=== PATIENT | male | born 1950 | race Caucasian/White ===

== ENCOUNTER 2017-03-30 10:41 | Outpatient (CLI) | payer MEDICARE ==
[~2017-03-30] VITALS: Ht 182.9 cm; Wt 70.5 kg
[2017-03-30] VITALS (12 sets, daily range): BP systolic 99–152; BP diastolic 68–99; PULSE 40–78; TEMP 97.9
[2017-03-30 11:20] LABS: HEMATOCRIT 40.6 % (42.0-52.0); HEMOGLOBIN 13.9 g/dl (13.5-18.0); MEAN CELL VOLUME 98 fl (80.0-100.0); MEAN CORPUSCULAR HEMOGLOBIN 34 pg (27.0-31.0); MEAN CORPUSCULAR HGB CONC 34 g/dl (33.0-37.0); MEAN PLATELET VOLUME 10.2 fl (7.4-10.4); PLATELET COUNT 164 K/mm3 (130-400); RED BLOOD COUNT 4.14 M/mm3 (4.20-5.60); REDCELL DISTRIBUTION WIDTH-CV 13.4 % (11.5-14.5); WHITE BLOOD COUNT 6.2 K/mm3 (4.8-10.8)
[2017-03-30 11:29] LABS: CREATININE, serum 1.08 mg/dL (0.66-1.25); POTASSIUM 4.3 mmol/L (3.4-5.0)
[2017-03-30 11:31] LABS: INR 1.2 (0.8-3.0); PROTHROMBIN TIME 13.6 SECONDS (9.7-12.8)
[2017-03-30] MEDS ORDERED: TENORMIN 2525 MG/TAB PO (12:50)
== END 2017-03-30 16:30 | disposition home or self-care (01) ==
LOC: EUO 10:41
PROVIDERS: Internal Medicine Interventional Cardiology
DX: I48.92 Unspecified atrial flutter (principal); I08.1 Rheumatic disorders of both mitral and tricuspid valves; I50.22 Chronic systolic (congestive) heart failure
CPT/HCPCS: J2250; J3010; J7030

== ENCOUNTER 2017-05-03 12:30 | Inpatient (IN) | payer MEDICARE ==
[~2017-05-03] VITALS: Ht 182.9 cm; Wt 70.6 kg
[2017-05-03] VITALS (471 sets, daily range): BP systolic 81–143; BP diastolic 57–102; PULSE 33–89; TEMP 94–98.6; O2SAT 58–100
[~2017-05-03 12:30] MED LIST: TENORMIN 2525 MG/TAB PO
[2017-05-03] MEDS ORDERED: GINGER500 MG PO (14:09)
[2017-05-03] MEDS ORDERED: ELIQUIS 2.5 PO (14:09)
[2017-05-03] MEDS ORDERED: TURMERIC500 MG PO (14:10)
[2017-05-03] MEDS ORDERED: MAGNESIUM ELEME30 MG PO (14:12)
[2017-05-03] MEDS ORDERED: IODINE (14:14)
[2017-05-04] VITALS (700 sets, daily range): BP systolic 101–122; BP diastolic 67–80; PULSE 91–93; TEMP 98.2–98.9; O2SAT 72–100
[2017-05-04] MEDS ORDERED: ELIQUIS 2.5 PO (11:43)
[2017-05-04] MEDS ORDERED: TYLENOL 325MG325 MG PO (11:44)
[2017-05-04] MEDS ORDERED: CEPHALEXIN500 M1 PO (11:45)
== END 2017-05-04 12:45 | disposition home or self-care (01) | DRG 243 ==
LOC: ICU 14:08
PROC: 0JH606Z Insertion of Pacemaker, Dual Chamber into Chest Subcutaneous Tissue and Fascia, Open Approach (ICD-10-PCS; principal; 2017-05-03)
PROC: 02HK3JZ Insertion of Pacemaker Lead into Right Ventricle, Percutaneous Approach (ICD-10-PCS; 2017-05-03)
PROC: 02H63JZ Insertion of Pacemaker Lead into Right Atrium, Percutaneous Approach (ICD-10-PCS; 2017-05-03)
DX: I49.5 Sick sinus syndrome (principal); I44.2 Atrioventricular block, complete; I50.22 Chronic systolic (congestive) heart failure; I42.0 Dilated cardiomyopathy; I11.0 Hypertensive heart disease with heart failure; I48.91 Unspecified atrial fibrillation; I08.1 Rheumatic disorders of both mitral and tricuspid valves
CPT/HCPCS: C1785; C1894; C1898; J0461; J0690; J1200; J1265; J1630; J1940; J3010

== ENCOUNTER → 2017-10-04 | Outpatient (CLI) | payer MEDICARE ==
[~2017-10-04] MED LIST changes: +CEPHALEXIN500 M1 PO; +ELIQUIS 2.5 PO; +GINGER500 MG PO; +IODINE; +K-DUR20 MEQ PO; +LASIX 40MG TABL40 MG PO; +MAGNESIUM ELEME30 MG PO; +TURMERIC500 MG PO; +TYLENOL 325MG325 MG PO
[2017-10-04 11:17] LABS: ALBUMIN 4.8 gm/dL (3.5-5.0); BILIRUBIN,TOTAL 1.4 mg/dL (0.0-1.0); CALCIUM 9.4 mg/dL (8.4-10.2); CREATININE, serum 1.31 mg/dL (0.66-1.25); POTASSIUM 4.7 mmol/L (3.4-5.0)
== END ==
LOC: COL.LAB 09:55
PROVIDERS: Nurse Practitioner Family
DX: I48.91 Unspecified atrial fibrillation (principal)

== ENCOUNTER → 2019-12-09 | Outpatient (CLI) | payer MEDICARE, OTHER | LOC: COL.RAD 09:02 | DX: C61 Malignant neoplasm of prostate (principal) | CPT/HCPCS: A9503 ==

== ENCOUNTER 2020-08-06 16:00 | Inpatient (IN) | payer MEDICARE, OTHER ==
[~2020-08-06] VITALS: Ht 182.9 cm; Wt 79.1 kg
[~2020-08-06 16:00] MED LIST changes: -CORDARONE200 MG/TAB PO; -COUMADIN 1MG1 MG/TAB PO; -K-DUR 10 MEQ T10 MEQ PO; -MELATIN 3 MG-11 TAB PO; -SYNTHROID0.05 MG/TA PO; -ULTRAM 50MG TAB50 MG PO
[2020-08-06] MEDS ORDERED: SYNTHROID0.05 MG/TA PO (16:58)
[2020-08-06] MEDS ORDERED: CORDARONE200 MG/TAB PO (17:01)
[2020-08-06] MEDS ORDERED: K-DUR 10 MEQ T10 MEQ PO (17:02)
[2020-08-06 17:03] VITALS: BP 126/60; PULSE 89; TEMP 97.6
[2020-08-06] MEDS ORDERED: ULTRAM 50MG TAB50 MG PO (17:04)
[2020-08-06] MEDS ORDERED: COUMADIN 1MG1 MG/TAB PO (17:05)
--- NOTE | 2020-08-06 17:18 | NUR ---
arrived on unit to room 351 per WC from admissionsat 1650, physical assessment completed, he is short of breath and breathing is labored, RXM completed, will assist him with changing into a gown, Dr Byrnes notified of patient's admission
--- NOTE | 2020-08-06 17:50 | NUR ---
sitting up on side of bed as he says it is easier to breathing sitting up, reminded him if he can it is good to sit back in bed with feet elevated to help decrease the swelling, verbalizes understanding, admission assessment completed, see interventions for further info, has brusing to low back on both sides that comes around to front, he states he has had this since having mitral valve replaced on 07/24, has healing chest incision that is without any redness or swelling, denies pain to incision, telemetry on and is confirmed with technician's helper, on admission he appeared somewhawt anxious since he was having trouble breathing, during assessment he appeared less anxious and would smile and joke with nurse, supper delivered and he will try to have something for supper, denies other needs
[2020-08-06] MEDS ORDERED: MELATIN 3 MG-11 TAB PO (18:12)
--- NOTE | 2020-08-06 18:21 | NUR ---
states ate about 2/3 of supper and tolerated well, is resting with head of bed elevated and feet up
[2020-08-06 18:33] LABS: CREATININE, serum 1.25 (0.66-1.25); POTASSIUM 4.8 mmol/L (3.4-5.0)
--- NOTE | 2020-08-06 18:51 | NUR ---
bedside shift report given to GILBERTO Dixon
[2020-08-06 19:09] LABS: TROPONIN-I 0.049 ng/mL (0.000-0.035)
--- NOTE | 2020-08-06 19:20 | NUR ---
Pt was setting on 90 degree bed when his nurse went for a bedside handover. Pt stated that he is tired and anxious. No further needs at this time.
[2020-08-06 19:35] VITALS: BP 114/97; PULSE 89; TEMP 98
[2020-08-06 19:57] LABS: INR 2.2 (0.8-3.0); PROTHROMBIN TIME 24.3 SECONDS (9.7-12.8)
--- NOTE | 2020-08-06 23:13 | NUR ---
Pt assessment completed and charted, alert, oriented, roomair. Meds provided as per NOV, tolerated well. Pt has abdominal distention and bruise on rt and lf upper abdominal quadrant. Lasix drip is running without complications, urinal on bedside. Pt is settled on his bed, call light is on reach. No further needs at this time.
[2020-08-06 23:22] VITALS: BP 112/51; PULSE 91; TEMP 97.5
--- NOTE | 2020-08-07 01:43 | NUR ---
CALLED RN ABOUT ABG ORDER THAT WAS INCORRECTLY ORDERED. SPOKE WITH RN STATING ABG ORDER WAS PUT IN WRONG AND NEED TO KNOW IF ORDER WAS PUT IN BY MISTAKE OR IF ORDER WAS MEANT TO BE PUT IN JUST PUT IN INCORRECTLY. RN STATED THAT SHE WOULD FIND OUT AND GIVE ME A CALL BACK. THIS RT NEVER GOT A CALL BACK AND WENT UP STAIRS TO TALK WITH RN. RN NEVER HAD AN ANSWER FOR THIS RT ABOUT THE ABG ORDER THEREFORE ABG WAS NEVER DONE. PT IS ON ROOM AIR LORENZA WELL WITH NO DISTRESS NOTED AT THIS TIME 99% FOR HIS SATURATIONS WILL CONTINUE TO MONITOR AND ASSESS PT.
[2020-08-07 03:01] VITALS: BP 123/77; PULSE 90; TEMP 97.3
--- NOTE | 2020-08-07 06:43 | NUR ---
Pt slept on and off through out the night. Pt was stated that he is tired getting up to urinate over night. Lasix drip is running without complications. No further needs at this time.
[2020-08-07 07:24] VITALS: BP 121/72; PULSE 91; TEMP 98.2
--- NOTE | 2020-08-07 09:13 | NUR ---
Pt awake and alert upon entry, sitting on side of bed, no C/O pain at this time. Shift assessments complete, left Pt call light in reach.
[2020-08-07 09:26] LABS: ARTERIAL BLD GAS O2 SATURATION 96.6 % (92-100); ARTERIAL BLD GAS TCO2 CT 23.2; ARTERIAL BLOOD GAS BASE EXCESS 0.7 (-2-2); ARTERIAL BLOOD GAS HCO3 22.3 meq/L (22-26); ARTERIAL BLOOD GAS PCO2 27.4 mmHg (35-45); ARTERIAL BLOOD GAS PO2 82.9 mmHg (80-100); ARTERIAL BLOOD GAS pH 7.53 (7.35-7.45)
[2020-08-07 09:26] LABS: BASO % 0.3 % (0.0-2.0); EOS % 0.4 % (0-4.0); GRAN # 7.3 (1.4-6.5); GRAN % 81.5 % (42.2-75.2); HEMOGLOBIN 10.9 g/dl (13.5-18.0); LYMPH # 0.5 (1.2-3.4); LYMPH % 5.5 % (20.0-51.0); MEAN CELL VOLUME 95 fl (80.0-100.0); MEAN CORPUSCULAR HEMOGLOBIN 31 pg (27.0-31.0); MEAN CORPUSCULAR HGB CONC 33 g/dl (33.0-37.0); MONO # 1.1 (0.1-0.6); PLATELET COUNT 412 K/mm3 (130-400); RED BLOOD COUNT 3.51 M/mm3 (4.20-5.60); REDCELL DISTRIBUTION WIDTH-CV 15.3 % (11.5-14.5)
[2020-08-07 09:33] LABS: HEMATOCRIT 33.2 % (42.0-52.0)
[2020-08-07 09:45] LABS: INR 2.4 (0.8-3.0); PROTHROMBIN TIME 27.6 SECONDS (9.7-12.8)
[2020-08-07 09:49] LABS: ALBUMIN 4.4 gm/dL (3.5-5.0); BILIRUBIN,TOTAL 2.8 mg/dL (0.0-1.0); CALCIUM 8.9 mg/dL (8.4-10.2); CREATININE, serum 1.43 (0.66-1.25); POTASSIUM 3.8 mmol/L (3.4-5.0); TOTAL PROTEIN 7.8 gm/dL (6.4-8.2)
--- NOTE | 2020-08-07 09:51 | NUR ---
Initial visit; Patient thanked Tank Truck Operator for offering prayer and God's blessings. Tank Truck Operator will follow up while patient is here.
[2020-08-07 10:19] LABS: TROPONIN-I 0.044 ng/mL (0.000-0.035)
[2020-08-07 11:20] VITALS: BP 127/97; PULSE 89; TEMP 98.4
--- NOTE | 2020-08-07 14:11 | NUR ---
DAHIANA met with the patient and his , Marita (ph#[phone]), to discuss discharge plan. The patient lives in [place] with his . He reports independence with ADLs and does not have any DME. The patient's primary care provider is REMY Milner and [facility] and [facility] in [place]. He reports no difficulties obtaining his meds. The patient does not have a DPOA-HC in EMR, but he states that he does have one completed and that it designates his . The patient plans to return home with his upon discharge. No additional needs at this time.
[2020-08-07 16:58] VITALS: BP 99/46; PULSE 88; TEMP 98.5
[2020-08-07 17:21] VITALS: BP 108/70
--- NOTE | 2020-08-07 18:58 | NUR ---
Pt resting in the room today, no C/O pain today. has had good output from the wilcox. VS have remained stable.
--- NOTE | 2020-08-07 19:20 | NUR ---
Pt was settling on his bed when this nurse went for a bedside handover. No further needs at this time.
[2020-08-07 20:29] VITALS: BP 119/75; PULSE 89; TEMP 97.9
[2020-08-08 00:03] VITALS: BP 104/65; PULSE 92; TEMP 98.1
--- NOTE | 2020-08-08 02:25 | NUR ---
Pt assessment completed and charted, alert, oriented, roomair. Meds provided as per MAR, tolerated well. Called Dr. Saha on pt's request to get additional sleep meds. Got phone order of aleks luis. Pt is settled on his bed, call light is on reach. No further needs at this time.
[2020-08-08 03:42] VITALS: BP 105/52; PULSE 89; TEMP 98.3
--- NOTE | 2020-08-08 06:14 | NUR ---
[facility] DEPART[facility] HEAD went to take scheduled vitals at around 0400 and pt was upset about that. Pt slept untill 0400. Convinced the pt in the morning and morning meds provided as per NOV. No further needs at this time.
[2020-08-08 08:23] VITALS: BP 92/56; PULSE 120; TEMP 97.7
--- NOTE | 2020-08-08 11:51 | NUR ---
PATIENT WAS VERY UPSET FROM THE CLUTCH ASSEMBLER ABOUT NOT GETTING ANY SLEEP. PATIENT IS TIRED OF BEING IN THE HOSPITAL AND NOT GETTING ANY SLEEP. THE RISKS AND BENEFITS WERE EDUCATED TO THE PATIENT ON STAYING IN THE HOSPITAL AND GETTING CARE VS. LEAVING AND NOT RECEIVING CARE. PATIENT SIGNED AMA PAPERWORK AT 11:17AM. IV WAS TAKEN OUT AND MARTINEZ WAS ALSO TAKEN OUT. PATIENT GOT DRESSED AND WAS WHEELED DOWN TO THE EMERGENCY ENTRANCE WHERE HE GOT IN HIS 'S CAR.
== END 2020-08-08 11:54 | disposition left against medical advice (07) | DRG 315 ==
LOC: SDCO 16:00 → MEDICAL 16:43
PROVIDERS: Nurse Practitioner; ADMIT Internal Medicine Interventional Cardiology
DX: I97.89 Other postprocedural complications and disorders of the circulatory system, not elsewhere classified (principal); J90 Pleural effusion, not elsewhere classified; J98.11 Atelectasis; R18.8 Other ascites; I48.91 Unspecified atrial fibrillation; Z79.01 Long term (current) use of anticoagulants; Z95.0 Presence of cardiac pacemaker; Y83.8 Other surgical procedures as the cause of abnormal reaction of the patient, or of later complication, without mention of misadventure at the time of the procedure; Y71.2 Prosthetic and other implants, materials and accessory cardiovascular devices associated with adverse incidents
CPT/HCPCS: J1940; Q9967

== ENCOUNTER → 2020-08-06 | Outpatient (CLI) | payer MEDICARE, OTHER ==
[~2020-08-06] MED LIST changes: +CORDARONE200 MG/TAB PO; +COUMADIN 1MG1 MG/TAB PO; +K-DUR 10 MEQ T10 MEQ PO; +MELATIN 3 MG-11 TAB PO; +SYNTHROID0.05 MG/TA PO; +ULTRAM 50MG TAB50 MG PO
== END ==
LOC: ZCOL.LAB 23:54
DX: G47.00 Insomnia, unspecified (principal); R06.02 Shortness of breath; Z95.0 Presence of cardiac pacemaker; Z98.890 Other specified postprocedural states; Z79.01 Long term (current) use of anticoagulants

== ENCOUNTER 2020-10-04 08:49 | Emergency (ER) | payer MEDICARE, OTHER ==
[~2020-10-04] VITALS: Ht 182.9 cm; Wt 70.5 kg
[~2020-10-04 08:49] MED LIST changes: +CORDARONE200 MG/TAB PO; +COUMADIN 1MG1 MG/TAB PO; +K-DUR 10 MEQ T10 MEQ PO; +MELATIN 3 MG-11 TAB PO; +SYNTHROID0.05 MG/TA PO; +ULTRAM 50MG TAB50 MG PO
[2020-10-04 08:58] VITALS: TEMP 98
[2020-10-04] MEDS ORDERED: ELIQUIS 2.5 PO (09:14)
[2020-10-04] MEDS ORDERED: BENADRYL50 MG PO (09:24)
[2020-10-04 09:31] LABS: BASO % 0.4 % (0.0-2.0); EOS % 0.8 % (0-4.0); GRAN # 4.2 (1.4-6.5); GRAN % 81.8 % (42.2-75.2); HEMATOCRIT 37.5 % (42.0-52.0); HEMOGLOBIN 12.1 g/dl (13.5-18.0); LYMPH # 0.5 (1.2-3.4); LYMPH % 8.9 % (20.0-51.0); MEAN CELL VOLUME 97 fl (80.0-100.0); MEAN CORPUSCULAR HEMOGLOBIN 31 pg (27.0-31.0); MEAN CORPUSCULAR HGB CONC 32 g/dl (33.0-37.0); MEAN PLATELET VOLUME 9.7 fl (7.4-10.4); MONO # 0.4 (0.1-0.6); MONO % 7.7 % (1.7-9.3); PLATELET COUNT 171 K/mm3 (130-400); RED BLOOD COUNT 3.85 M/mm3 (4.20-5.60); REDCELL DISTRIBUTION WIDTH-CV 16.2 % (11.5-14.5)
[2020-10-04 09:39] LABS: ALANINE AMINOTRANSFERASE 16 U/L (4-49); ALBUMIN 4.5 gm/dL (3.5-5.0); ALKALINE PHOSPHATASE 106 U/L (50-136); ANION GAP 10 mmol/L (7-16); AST,SGOT 23 U/L (15-37); BILIRUBIN,TOTAL 0.9 mg/dL (0.0-1.0); BLOOD UREA NITROGEN 20 mg/dL (9-20); CALCIUM 9.4 mg/dL (8.4-10.2); CARBON DIOXIDE 25 mmol/L (22-30); CHLORIDE 105 mmol/L (98-107); CREATININE, serum 1.15 (0.66-1.25); GLUCOSE 96 mg/dL (74-106); POTASSIUM 4.2 mmol/L (3.4-5.0); SODIUM 140 mmol/L (137-145)
[2020-10-04 09:54] LABS: TROPONIN-I < 0.012 ng/mL (0.000-0.035)
[2020-10-04 11:06] LABS: MUCOUS Present /lpf; PH 5 (5-8); SQUAMOUS EPITHELIAL None Seen /hpf; URINE APPEARANCE Clear; URINE BACTERIA None Seen /hpf; URINE BILIRUBIN Negative (NEGATIVE); URINE BLOOD Negative (NEGATIVE); URINE COLOR Yellow; URINE GLUCOSE Negative (NEGATIVE); URINE KETONE Negative (NEGATIVE); URINE LEUKOCYTE ESTERASE Negative (NEGATIVE); URINE NITRATE Negative (NEGATIVE); URINE PROTEIN(semi-quant) Negative (NEGATIVE); URINE RBC 0-2 /hpf; URINE UROBILINOGEN Negative (NEGATIVE); URINE WBC 0-2 /hpf
[2020-10-04 11:24] LABS: COLLECTION METHOD CLEAN CATCH
[2020-10-04 12:39] VITALS: BP 128/98; PULSE 89
== END 2020-10-04 12:39 | disposition home or self-care (01) ==
LOC: COL.ER 08:49
PROVIDERS: Emergency Medicine
DX: I50.9 Heart failure, unspecified (principal); E03.9 Hypothyroidism, unspecified; Z20.822 Contact with and (suspected) exposure to COVID-19; Z85.46 Personal history of malignant neoplasm of prostate; Z95.0 Presence of cardiac pacemaker; Z86.79 Personal history of other diseases of the circulatory system; Z79.01 Long term (current) use of anticoagulants; Z79.890 Hormone replacement therapy

== ENCOUNTER → 2020-12-16 | Outpatient (CLI) | payer MEDICARE, OTHER ==
[~2020-12-16] MED LIST changes: +BENADRYL50 MG PO
[2020-12-16 15:46] LABS: TROPONIN-I < 0.012 ng/mL (0.000-0.035)
== END ==
LOC: ZCOL.LAB 15:25
PROVIDERS: Internal Medicine Interventional Cardiology
DX: Z01.812 Encounter for preprocedural laboratory examination (principal); Z11.59 Encounter for screening for other viral diseases; I34.0 Nonrheumatic mitral (valve) insufficiency; R55 Syncope and collapse

== ENCOUNTER → 2021-07-28 | Outpatient (CLI) | payer MEDICARE, OTHER ==
[2021-07-28 16:37] LABS: CALCIUM 9.4 mg/dL (8.4-10.2); CREATININE, serum 1.46 mg/dL (0.72-1.25); POTASSIUM 4.4 mmol/L (3.5-4.5)
== END ==
LOC: ZCOL.LAB 15:22
PROVIDERS: Internal Medicine Interventional Cardiology
DX: Z01.812 Encounter for preprocedural laboratory examination (principal); I50.20 Unspecified systolic (congestive) heart failure

== ENCOUNTER → 2022-05-23 | Outpatient (CLI) | payer MEDICARE, OTHER ==
[2022-05-23 16:24] LABS: CALCIUM 9.4 mg/dL (8.4-10.2); CREATININE, serum 1.28 mg/dL (0.72-1.25); POTASSIUM 4.4 mmol/L (3.5-4.5); TROPONIN-I 0.018 ng/mL (0.00-0.033)
== END ==
LOC: ZCOL.LAB 16:17
PROVIDERS: Nurse Practitioner
DX: I48.0 Paroxysmal atrial fibrillation (principal)